=== PATIENT | female | born 1990 | race Caucasian/White ===

== ENCOUNTER 2017-10-23 23:36 | Emergency (ER) | payer OTHER ==
[~2017-10-23] VITALS: Ht 165.1 cm; Wt 54.4 kg
[2017-10-23] MEDS ORDERED: TRAZODONE HCL150 MG ORAL (23:50)
[2017-10-24] MEDS ORDERED: KEFLEX500 MG ORAL (00:19)
[2017-10-24 00:35] VITALS: BP 112/69
--- NOTE | 2017-10-24 02:03 | Emergency Room Report ---
History of Present Illness General Chief Complaint: Animal Bite Source: Patient Present Illness HPI 26-year-old female presents ED for evaluation. Patient notes pain and swelling to her left thigh 1 day. States she was bitten by a spider. Pain is throbbing , 5 out of 10, nonradiating. Denies fevers chills. Denies any discharge. No other aggravating relieving factors. Denies any other associated symptoms Allergies: Coded Allergies: No Known Allergies (Unverified , 10/23/17) Patient History Past Medical History: psych hx Past Surgical History: none Pertinent Family History: none Social History: Denies: smoking, alcohol use, drug use Last Menstrual Period: 10/08/17 Now: No : 0 Para: 0 Immunizations: UTD Reviewed Nursing Documentation: PMH: Agreed; PSxH: Agreed Nursing Documentation-PMH Past Medical History: No History, Except For History Of Psychiatric Problem: Yes - anxiety Review of Systems All Other Systems: negative except mentioned in HPI Physical Exam Vital Signs Date Time Temp Pulse Resp B/P (MAP) Pulse Ox O2 Delivery O2 Flow Rate FiO2 10/23/17 23:46 98.3 89 14 112/69 96 Room Air 98.2 Sp02 EP Interpretation: reviewed, normal General Appearance: no apparent distress, alert, GCS 15, non-toxic Head: normocephalic Eyes: bilateral eye normal inspection, bilateral eye PERRL ENT: normal ENT inspection, normal voice Neck: normal inspection Respiratory: normal inspection Cardiovascular #1: normal inspection Gastrointestinal: normal inspection Rectal: deferred Genitourinary: no CVA tenderness Musculoskeletal: back normal, gait/station normal, normal range of motion, non- tender Neurologic: alert, oriented x3, responsive, motor strength/tone normal, sensory intact, speech normal Psychiatric: normal inspection Skin: other - 2x2cm area of induration/erythema to L upper thigh. no discharge no fluctuance Lymphatic: normal inspection Medical Decision Making Diagnostic Impression: Primary Impression: Cellulitis of thigh ER Course Hospital Course 26-year-old female presents to ED with redness, swelling to L thigh Differential diagnoses include: Cellulitis, dermatitis, insect bite, abscess Clinical course Patient placed on stretcher. After initial history, physical exam reveals a young female in no acute distress. On exam there is a site for mild erythema and induration to the L upper thigh. There is no fluctuance. Consistent with an insect bite with cellulitis. Recommend warm compresses and antibiotics close followup with PMD Diagnosis - cellulitis of thigh stable and discharged to home with prescription for Keflex. Instructed to followup with PMD. Instructed return to ED if symptoms recur or worsen Last Vital Signs Date Time Temp Pulse Resp B/P (MAP) Pulse Ox O2 Delivery O2 Flow Rate FiO2 10/24/17 00:35 98.3 89 14 112/69 96 Room Air 98.3 Status: improved Disposition: HOME, SELF-CARE Condition: Stable Scripts Cephalexin* (KEFLEX*) 500 Mg Capsule 500 MG ORAL Q6H, #28 CAP 0 Refills Prov: Milad Batista MD 10/24/17 Patient Instructions: Cellulitis, [id number] Milad Batista MD Oct 24, 2017 02:03
== END 2017-10-24 00:35 | disposition home or self-care (01) ==
LOC: EMR 23:59
DX: L03.116 Cellulitis of left lower limb (principal); F41.9 Anxiety disorder, unspecified
CPT/HCPCS: 99283